=== PATIENT | female | born 1935 | race Caucasian/White ===

== ENCOUNTER 2017-06-21 13:52 | Observation (INO) | payer MEDICARE, OTHER ==
[2017-06-21 14:38] LABS: #Basophils 0.1 thou/uL (0.0-0.2); #Eosinphils 0.3 thou/uL (0.0-0.7); #Lymphocytes 1.9 thou/uL (1.20-3.40); #Monocytes 0.7 thou/uL (0.11-0.59); #Neutrophils 4.8 thou/uL (1.40-6.50); %Eosinophils 3.4 % (0.0-10.0); %Lymphocytes 24.1 % (21.0-51.0); %Monocytes 9.3 % (0.0-10.0); %Neutrophils 62.2 % (42.0-75.0); Mean Corpuscular HGB CONC 34.2 g/dL (32.0-36.0); Mean Corpuscular Hemoglobin 30.7 pg (27.0-31.0); Mean Platelet Volume 6.9 fL (7.4-10.4); Platelet Count 271 thou/uL (130-400); RBC Distribution Width 12.5 % (11.5-14.5); Red Blood Cell (RBC) Count 4.87 mill/uL (4.20-5.40); White Blood Cell (WBC) Count 7.7 thou/uL (4.8-10.8)
[2017-06-21 14:48] LABS: ALT (SGPT) 14 U/L (8-55); AST (SGOT) 18 U/L (5-34); Albumin 4.3 g/dL (3.4-4.8); Alkaline Phosphatase 68 U/L (40-150); Anion Gap 14 mmol/L (10-20); BUN (Urea Nitrogen) 22 mg/dL (9.8-20.1); Bilirubin, Total 0.5 mg/dL (0.2-1.2); Calc. Creatinine Clearance 0 mL/min (70-130); Calcium 9.5 mg/dL (7.8-10.44); Carbon Dioxide 27 mmol/L (23-31); Chloride 104 mmol/L (98-107); Estimated GFR-MDRD 49; Globulin 3.3 g/dL (2.4-3.5); Glucose 151 mg/dL (83-110); Lipase 27 U/L (8-78); Potassium 3.8 mmol/L (3.5-5.1); Protein, Total 7.6 g/dL (6.0-8.3); Sodium 141 mmol/L (136-145)
[2017-06-21 15:01] LABS: CKMB 0.9 ng/mL (0-6.6); Troponin I Less than 0.010 ng/mL (< 0.028)
[2017-06-21] MEDS ORDERED: Nitroglycerin 2% Ointment 1 INCH/1 GM Packet ONE (15:50)
[2017-06-21 15:53] LABS: Bilirubin Negative (Negative); Blood, Urine Negative (Negative); Clarity Clear (Clear); Glucose, Urine (Dipstick) Negative (Negative); Leukocyte Negative (Negative); Nitrite Negative (Negative); Protein, Urine (Dipstick) Negative (Neg-Trace); Urobilinogen 0.2 mg/dL (0.2-1.0)
[2017-06-21 16:01] LABS: Amphetamine Not Detected (NotDetected); Barbiturates Screen Not Detected (NotDetected); Benzodiazepine Screen Not Detected (NotDetected); Cocaine Metabolite Screen Not Detected (NotDetected); Medtox Control Line Valid? VALID (VALID); Methadone Not Detected (NotDetected); Methamphetamine Not Detected (NotDetected); Opiate Screen Not Detected (NotDetected); Oxycodone Screen Not Detected (NotDetected); Phencyclidine (PCP) Not Detected (NotDetected); THC/Cannabinoid Screen Not Detected (NotDetected); Tricyclic Screen Not Detected (NotDetected)
--- NOTE | 2017-06-21 16:50 | CT ---
BRAIN CT WITHOUT IV CONTRAST: History: 82-year-old female with history of confusion, shortness of breath. Comparison: 03-18-12 FINDINGS: There is chronic white matter ischemic changes which has progressed since the prior exam. No focal ma ss or midline shift. No intra or extraaxial hemorrhage. There are some small punctate lacunar infarct s which have developed since the prior study. No mass effect or midline shift. No intra or extraaxial hemorrhage. IMPRESSION: Somewhat progressive atrophy, chronic white matter ischemic changes, and some small lacunar infarct c hanges. No mass or bleed or other acute process. POS: [facility]
--- NOTE | 2017-06-21 16:53 | RAD ---
CHEST PA AND LATERAL: History: 82-year-old female with history of dyspnea and shortness of breath, worsening. Comparison: 08-23-16 FINDINGS: Heart size is upper range of normal. Mild biapical pleural thickening. Stable minimal increased johanna ngs bilaterally. No confluent pneumonia, overt edema, or pleural effusion. IMPRESSION: Stable appearing chest. No acute intrathoracic disease. No evidence for pneumonia or edema. POS: [facility]
[2017-06-21 17:51] LABS: Troponin I Less than 0.010 ng/mL (< 0.028)
[2017-06-21 20:33] LABS: Troponin I Less than 0.010 ng/mL (< 0.028)
[2017-06-21 21:01] VITALS: BMI 19.0
[2017-06-21] MEDS ORDERED: Nitroglycerin 2% Ointment 1 INCH/1 GM Packet TOP SCH (22:00)
[2017-06-22] MEDS ORDERED: Acetaminophen 500 MG TAB PO PRN (08:52)
[2017-06-22] MEDS ORDERED: Acetaminophen 325 MG TAB PO PRN (11:53)
--- NOTE | 2017-06-22 11:56 | ULT ---
BILATERAL CAROTID DUPLEX ULTRASOUND INCLUDING COLOR AND SPECTRAL DOPPLER IMAGING: DATE: 06/22/17 HISTORY: Chest pain. FINDINGS: There is minimal visual plaque in the origins of the right and left ICAs. PSV Right ICA: 57 cm/sec EDV: 16 cm/sec ICA/CCA Ratio: 1.0 PSV Left ICA: 64 cm/sec EDV: 18 cm/sec ICA/CCA Ratio: 1.1 Vertebral flow antegrade. IMPRESSION: No hemodynamically significant stenosis. Minimal visual plaque bilaterally. Evidence for carotid martha ry atherosclerotic vascular disease. POS: [facility]
[2017-06-22] MEDS ORDERED: ALPRAZolam 0.25 MG TAB PO PRN (14:29)
[2017-06-22] MEDS: Ipratropium Bromide 2.5 ml Neb NEB SCH ×3 (15:52→22:14)
--- NOTE | 2017-06-22 16:04 | MRI ---
BRAIN MRI WITHOUT IV CONTRAST: HISTORY: An 82-year-old female with a history of acute confusion, altered mental status, shortness of breath f or several days. FINDINGS: There is atrophy and chronic white matter ischemic change noted bilaterally. Small punctate right ce rebellar lacunar infarct. No evidence for acute infarct. No mass or midline shift. No intra- or ex traaxial hemorrhage. Normal expected flow voids are present. IMPRESSION: Some bilateral atrophy and chronic white matter ischemic changes and old lacunar infarct changes. No mass or bleed. No evidence for acute infarct. POS: [facility]
[2017-06-22] MEDS: Heparin 5,000 UNITS/ML VIAL SC SCH ×4 (16:53→21:13)
--- NOTE | 2017-06-22 17:36 | HP ---
PRIMARY CARE PHYSICIAN: Fred Dumont M.D. HISTORY OF PRESENT ILLNESS: Patient is a very pleasant 82-year-old female with past medical history of emphysema/asthma who presented to the hospital with complaints of generalized weakness and some sh ortness of breath. I did get most of the history from patient's daughter through the phone. The geena banegas's daughter states that for the past week or so, the patient has been complaining of just general ized weakness, not having enough energy. She also has been complaining of some shortness of breath o n exertion. According to the patient's daughter, she was recently diagnosed with mild dementia and w as put on medications. The patient also uses three inhalers at home; however, according to her daugh ter, she has not been using much of the inhalers either. The patient initially was seen at an [facility] facility. Most of her workup has been negative. She did have a brain CT done which showed patient had some white matter ischemic changes and some small lacunar infarct changes. Patient currently de nies any fevers or chills. She does complain of chest tightness; however, her troponins have been ne gative and no significant EKG changes. The patient denies any abdominal pain or diarrhea. Upon aski ng if patient was anxious, she started crying and stated that she is very anxious. The patient's kate ghter also further stated that patient lost her recently. PAST MEDICAL HISTORY: Mild dementia, paroxysmal atrial fibrillation, hypertension, hyperlipidemia, e mphysema/asthma. PAST SURGICAL HISTORY: She had tonsil removed. PSYCHIATRIC HISTORY: She has a history of depression. SOCIAL HISTORY: The patient's daughter stated that she has smoked maybe 3 cigarettes her whole life. No secondhand smoking. Patient normally drinks about 2 beers a week. However, patient's daughter stated that last week when she went to visit her mother, she saw 7 cans of beer in the garbage can. Patient states that when she is unable to sleep. She drinks a can of beer. SOCIAL HISTORY: The patient denies any history of hypertension or diabetes. ALLERGIES: No known drug allergies. MEDICATIONS: She uses ProAir 1 puff as needed, Advair 1 puff daily, Spiriva 1 puff twice a day, simv astatin 10 mg daily, Aricept 10 mg daily, Namenda 10 mg p.o. b.i.d., Lexapro 5 mg at bedtime. REVIEW OF SYSTEMS: The following complete review of systems was negative, unless otherwise mentioned in the HPI or below: Constitutional: Weight loss or gain, ability to conduct usual activities. Skin: Rash, itching. Eyes: Double vision, pain. ENT/Mouth: Nose bleeding, neck stiffness, pain, tenderness. Cardiovascular: Palpitations, dyspnea on exertion, orthopnea. Respiratory: Shortness of breath, wheezing, cough, hemoptysis, fever or night sweats. Gastrointestinal: Poor appetite, abdominal pain, heartburn, nausea, vomiting, constipation, or diarr hea. Genitourinary: Urgency, frequency, dysuria, nocturia. Musculoskeletal: Pain, swelling. Neurologic/Psychiatric: Anxiety, depression. Allergy/Immunologic: Skin rash, bleeding tendency. All negative except for the ones mentioned in the HPI. PHYSICAL EXAMINATION: VITAL SIGNS: Temperature of 97.7, 75, 16, 140/71, and 97% on room air. GENERAL: She is awake, alert, oriented x3. Does not appear in distress. CARDIOVASCULAR: S1, S2 present. No murmurs, rubs or gallops. LUNGS: Completely clear to auscultation. No rhonchi or wheezes noted. ABDOMEN: Soft, nontender. Bowel sounds are present x2. EXTREMITIES: No edema. NEUROLOGIC: A 5/5 upper extremity strength and lower extremity strength. Sensation is intact upper and lower. LABORATORY DATA AND IMAGING DATA: Are as the following; WBCs of 7.7, hemoglobin of 15.0, hematocrit of 43.8, platelets of 271. Urine is normal. No UTI and her sodium of 141, potassium of 3.8, bicarbo selene of 27, BUN of 22, creatinine 1.07. LFTs are normal. Troponins x3 are negative. Thyroid is nor mal at 2.9. As I mentioned, she had a CT of the head which indicated somewhat progressive atrophy wi th small lacunar infarcts and she had a chest x-ray which to me upon my interpretation appears to be hyperinflated however, no evidence of pneumonia noted. ASSESSMENT AND PLAN: The patient is a very pleasant 82-year-old female who presents to the hospital with complaints of generalized weakness and shortness of breath. 1. Shortness of breath could be secondary to anxiety versus asthma/emphysema exacerbation versus inf ectious. Patient's BNP was completely normal at 77.2. She has got no elevated white count. Chest x -ray is completely normal, unlikely to be any infectious process. In regards to emphysema or asthma, we will start her on some DuoNebs and we will continue her home inhalers. She has got no wheezing o n examination. We will hold off on steroids for now. Echo is ordered and is pending. Also, we will check her carotids. Most likely, this patient has been undergoing a lot of stress and has been very depressed recently due to loss of her . This could be related to anxiety; however, I do want to rule out other abnormalities. The patient's troponins x3 were negative. EKG, no ST-T wave penaloza es. We will continue to monitor on telemetry. We will also get an MRI brain for further evaluation. 2. Mild dementia. We will continue her home medications. 3. Emphysema and asthma. We will continue her home medications. 4. Anxiety with depression. We will start patient on p.r.n. Xanax as needed. Since when I started talking with the patient, she started crying and she has been under a lot of stress and has been havi ng a lot of things on her mind. 5. Deep venous thrombosis prophylaxis. We will put patient on subcu heparin.
[2017-06-22] MEDS ORDERED: Escitalopram Oxalate 10 mg Tablet PO SCH (21:00)
[2017-06-22] MEDS ORDERED: Atorvastatin Calcium 10 MG TAB PO SCH (21:00)
[2017-06-22] MEDS ORDERED: Simvastatin 20 MG TAB PO SCH (21:00)
[2017-06-23] MEDS: Ipratropium Bromide 2.5 ml Neb NEB SCH ×3 (02:13→10:17)
[2017-06-23 05:27] LABS: #Eosinphils 0.4 thou/uL (0.0-0.7); #Lymphocytes 1.8 thou/uL (1.20-3.40); #Monocytes 0.7 thou/uL (0.11-0.59); #Neutrophils 2.7 thou/uL (1.40-6.50); %Basophils 0.8 % (0.0-1.0); %Eosinophils 7.6 % (0.0-10.0); %Lymphocytes 31.3 % (21.0-51.0); %Monocytes 12.8 % (0.0-10.0); %Neutrophils 47.5 % (42.0-75.0); Hemoglobin 13.3 g/dL (12.0-16.0); Mean Corpuscular HGB CONC 32.7 g/dL (32.0-36.0); Mean Corpuscular Hemoglobin 30.9 pg (27.0-31.0); Mean Corpuscular Volume 94.6 fl (81.0-99.0); Mean Platelet Volume 6.6 fL (7.4-10.4); Platelet Count 273 thou/uL (130-400); RBC Distribution Width 12.6 % (11.5-14.5); White Blood Cell (WBC) Count 5.7 thou/uL (4.8-10.8)
[2017-06-23 05:44] LABS: Anion Gap 8 mmol/L (10-20); BUN (Urea Nitrogen) 18 mg/dL (9.8-20.1); Calc. Creatinine Clearance 41 mL/min (70-130); Calcium 9.2 mg/dL (7.8-10.44); Carbon Dioxide 29 mmol/L (23-31); Chloride 108 mmol/L (98-107); Estimated GFR-MDRD 62; Glucose 91 mg/dL (83-110); Potassium 4.1 mmol/L (3.5-5.1); Sodium 141 mmol/L (136-145)
[2017-06-23] MEDS ORDERED: Mometasone/Formoterol 120 PUFF INHALER INH SCH (07:00)
[2017-06-23 07:54] VITALS: TEMP 98.2
[2017-06-23] MEDS ORDERED: SALMETEROL INH SCH ×2 (09:00)
[2017-06-23] MEDS ORDERED: Donepezil HCl 10 MG TAB PO SCH (09:00)
[2017-06-23] MEDS ORDERED: FLUTICASONE INH SCH ×2 (09:00)
[2017-06-23] MEDS ORDERED: DILTIAZEM HCL 180 MG PO SCH ×2 (09:00)
[2017-06-23] MEDS: Heparin 5,000 UNITS/ML VIAL SC SCH ×2 (09:26)
--- NOTE | 2017-06-23 13:28 | PDOC.PN ---
- Subjective Encounter Start Date: 06/23/17 Encounter Start Time: 06:45 -: old records requested/rev Patient seen and examined. No new complaints. No overnight events - Objective Resuscitation Status: Resuscitation Status FULL:Full Resuscitation MAR Reviewed: Yes Vital Signs & Weight: Vital Signs (12 hours) Temp Pulse Resp BP Pulse Ox 06/23/17 07:53 98.2 F 114 H 16 157/79 H 95 06/23/17 07:40 98.2 F 114 H 16 06/23/17 07:01 90 14 06/23/17 03:40 97.6 F 76 16 161/93 H 97 06/23/17 02:13 16 Weight Weight 116 lb I&O: 06/22/17 06/23/17 06/24/17 06:59 06:59 06:59 Intake Total 120 1730 300 Balance 120 1730 300 Result Diagrams: 06/23/17 04:57 06/23/17 04:57 Radiology Reviewed by me: Yes EKG Reviewed by me: Yes Phys Exam - Physical Examination Constitutional: NAD HEENT: PERRLA, moist MMs, sclera anicteric Neck: no JVD, supple Respiratory: no wheezing, no rales, no rhonchi Cardiovascular: RRR, no significant murmur, no rub Gastrointestinal: soft, non-tender, no distention, positive bowel sounds Musculoskeletal: no edema, pulses present Neurological: non-focal, normal sensation, moves all 4 limbs Psychiatric: normal affect, A&O x 3 Skin: no rash, normal turgor Dx/Plan (1) COPD exacerbation Code(s): J44.1 - CHRONIC OBSTRUCTIVE PULMONARY DISEASE W (ACUTE) EXACERBATION Status: Acute (2) Dyspnea Code(s): R06.00 - DYSPNEA, UNSPECIFIED Status: Acute (3) Anxiety and depression Code(s): F41.9 - ANXIETY DISORDER, UNSPECIFIED; F32.9 - MAJOR DEPRESSIVE DISORDER, SINGLE EPISODE, UNSPECIFIED Status: Chronic (4) Dementia Code(s): F03.90 - UNSPECIFIED DEMENTIA WITHOUT BEHAVIORAL DISTURBANCE Status: Chronic (5) Dyslipidemia Code(s): E78.5 - HYPERLIPIDEMIA, UNSPECIFIED Status: Chronic (6) Paroxysmal atrial fibrillation Code(s): I48.0 - PAROXYSMAL ATRIAL FIBRILLATION Status: Chronic - Plan cont current plan of care * medication reviewed as below * symptomatic treatment * see discharge summery. Review of Systems - Review of Systems ENT: negative: Ear Pain, Ear Discharge, Nose Pain, Nose Discharge, Nose Congestion, Mouth Pain, Mouth Swelling, Throat Pain, Throat Swelling, Other Respiratory: negative: Cough, Dry, Shortness of Breath, Hemoptysis, SOB with Excertion, Pleuritic Pain, Sputum, Wheezing Cardiovascular: negative: chest pain, palpitations, orthopnea, paroxysmal nocturnal dyspnea, edema, light headedness, other Gastrointestinal: negative: Nausea, Vomiting, Abdominal Pain, Diarrhea, Constipation, Melena, Hematochezia, Other Genitourinary: negative: Dysuria, Frequency, Incontinence, Hematuria, Retention , Other Musculoskeletal: negative: Neck Pain, Shoulder Pain, Arm Pain, Back Pain, Hand Pain, Leg Pain, Foot Pain, Other - Medications/Allergies Allergies/Adverse Reactions: Allergies Allergy/AdvReac Type Severity Reaction Status Date / Time No Known Allergies Allergy Unverified 06/21/17 18:19
[2017-06-23 13:34] VITALS: BP 154/85
--- NOTE | 2017-06-23 13:46 | DIS ---
DATE OF ADMISSION: 06/21/2017 DATE OF DISCHARGE: 06/23/2017 PRIMARY CARE PHYSICIAN: Fred Dumont M.D. DISCHARGE DISPOSITION: Home with home health. PRIMARY DISCHARGE DIAGNOSES: Dyspnea due to mild chronic obstructive pulmonary disease exacerbation, generalized weakness. SECONDARY DISCHARGE DIAGNOSES: Paroxysmal atrial fibrillation, dyslipidemia, dementia, anxiety and d epression, chronic obstructive pulmonary disease. PRIMARY PROCEDURE/OPERATION: None. RADIOLOGICAL INVESTIGATION: Chest x-ray showed COPD changes. CT brain negative for any acute intrac ranial process, but it did show age-related atrophy and cortical white matter ischemic changes and la cunar infarct. MRI brain also concord the CT finding. Carotid Doppler showed atherosclerotic diseas e. SIGNIFICANT LABORATORY DATA: WBC 5.7, hemoglobin 13.3, platelet 273. Sodium 141, creatinine 0.87. Cardiac enzymes negative x3. BNP 77.2. LFT normal. Urinalysis normal. Urine drug screen negative. DISCHARGE MEDICATIONS: ProAir HFA 1 or 2 puffs q.4 hourly p.r.n., aspirin 81 mg p.o. daily, Cardizem -CD 180 mg p.o. daily, Aricept 10 mg p.o. daily, Lexapro 10 mg p.o. at bedtime, Advair inhalation b.i .d., Namenda 10 mg twice daily, Zocor 20 mg p.o. at bedtime, Spiriva 18 mcg inhalation daily. CONTRAINDICATIONS: None. CODE STATUS: FULL CODE. INPATIENT CONSULTANTS: None. ALLERGIES: No known drug allergy. DISCHARGE PLAN: Post hospital, the patient will follow up with primary care physician, Dr. Fred samaniego in 1 week. The patient will follow up with home health nurse. HOSPITAL COURSE: An 82-year-old female who was admitted on hospital on 06/21/2017. The patient was evaluated by admitting physician on 06/22/2017. The patient was discharged home today. Today was my first day of encounter with this particular patient. The patient was admitted for dyspnea and generalized weakness that was attributed to be due to mild c hronic obstructive pulmonary disease flare-up. The patient's respiratory status improved with DuoNeb therapy and home medication. During this admission, we also did MRI brain that was negative for any acute intracranial process, but it did show atrophy and chronic ischemic white matter changes and ol d lacunar infarct. Carotid Doppler showed atherosclerotic disease. Echocardiography was obtained, o fficial report is pending by the time of discharge. The patient did very well while in hospital. We continued all her home medication while in hospital as well as upon discharge. The patient is given home health at home for physical therapy and pen[facility]ent[facility]. Plan of care discussed with the patie nt and family member at bedside. Please see my progress note from today for further detail.
== END 2017-06-23 11:36 | disposition home health service (06) ==
LOC: SCSER 13:52 → 2SE 17:59
PROVIDERS: ADMIT Family Medicine; ATTEND Family Medicine
DX: J43.9 Emphysema, unspecified (principal); R53.1 Weakness; I48.0 Paroxysmal atrial fibrillation; E78.5 Hyperlipidemia, unspecified; F03.90 Unspecified dementia, unspecified severity, without behavioral disturbance, psychotic disturbance, mood disturbance, and anxiety; F41.8 Other specified anxiety disorders; Z79.51 Long term (current) use of inhaled steroids; Z79.899 Other long term (current) drug therapy
CPT/HCPCS: 70450; 70551; 71046; 80048; 80306; 81003; 82553; 82607; 83690; 83880; 84484 ×2; 85025; 93005; 93306; 93880; 94640 ×4; 97116; 97139 ×2; 99285; G0378; G8978; G8979; 36415; 80053; 84443; J1644; J7620; J7644

== ENCOUNTER 2018-12-24 16:01 | Outpatient (CLI) | payer MEDICARE, OTHER ==
--- NOTE | 2018-12-28 14:12 | MMO ---
Bilateral MAMMO Bilat Screen [facility]. CLINICAL HISTORY: Patient is 83 years old and is seen for screening. The patient has no family history of breast cancer. The patient has no personal history of cancer. VIEWS: The views performed were: bilateral craniocaudal with tomosynthesis and bilateral mediolateral oblique with tomosynthesis. FILMS COMPARED: The present examination has been compared to prior imaging studies performed at This study has been interpreted with the assistance of computer-aided detection. MAMMOGRAM FINDINGS: The breasts are extremely dense, which may lower the sensitivity of mammography. Finding 1: There are benign appearing and vascular calcifications seen in both breasts. Finding 2: There are new post operative changes seen in the left breast. Interval placement of loop recorder in the inferior lower left breast. This slightly limits the exam. There are no suspicious masses, suspicious calcifications, or new areas of architectural distortion. IMPRESSION: THERE IS NO MAMMOGRAPHIC EVIDENCE OF MALIGNANCY. A ROUTINE FOLLOW-UP MAMMOGRAM IN 1 YEAR IS RECOMMENDED. THE RESULTS OF THIS EXAM WERE SENT TO THE PATIENT. ACR BI-RADS Category 2 - Benign finding MAMMOGRAPHY NOTE: 1. A negative mammogram report should not delay a biopsy if a dominant of clinically suspicious mass is present. 2. Approximately 10% to 15% of breast cancers are not detected by mammography. 3. Adenosis and dense breasts may obscure an underlying neoplasm. Reported by: KAMAR WHITE MD Electonically Signed: [id number]
== END 2018-12-24 16:02 | disposition home or self-care (01) ==
LOC: BICMAMMO 16:01
PROVIDERS: ATTEND Family Medicine
DX: Z12.31 Encounter for screening mammogram for malignant neoplasm of breast (principal)
CPT/HCPCS: 77063; 77067

== ENCOUNTER 2019-02-18 13:52 | Outpatient (CLI) | payer MEDICARE, OTHER ==
--- NOTE | 2019-02-18 14:56 | BD ---
EXAM: Bone densitometry using DEXA HISTORY: 83 yo female. Screening for postmenopausal osteoporosis. Asymptomatic menopausal state FINDINGS: L1--bone mineral density 0.763 g/sq cm; T score -2.1 ; Z score 0.5 L2--bone mineral density 0.856 g/sq cm; T score -1.6 ; Z score 1.3 L3--bone mineral density 0.947 g/sq cm; T score -1.2 ; Z score 1.7 L4--bone mineral density 0.979 g/sq cm; T score -0.7 ; Z score 2.3 Total L1-L4--bone mineral density 0.889 g/sq cm; T score -1.4 ; Z score 1.4 Left femoral neck--bone mineral density0.506; T score -2.1 ; Z score 0.6 Total proximal left femur--bone mineral density 0.794; T score -1.2 ; Z score 1.1 IMPRESSION: Osteoporosis
== END 2019-02-18 13:53 | disposition home or self-care (01) ==
LOC: BICMAMMO 13:52
PROVIDERS: ATTEND Family Medicine
DX: Z13.820 Encounter for screening for osteoporosis (principal); M81.0 Age-related osteoporosis without current pathological fracture; Z78.0 Asymptomatic menopausal state
CPT/HCPCS: 77080

== ENCOUNTER 2019-08-06 18:21 | Observation (INO) | payer MEDICARE, OTHER ==
[2019-08-06 18:48] LABS: #Eosinphils 0.1 thou/uL (0.0-0.7); #Lymphocytes 1.2 thou/uL (1.20-3.40); #Monocytes 1.4 thou/uL (0.11-0.59); #Neutrophils 9.1 thou/uL (1.40-6.50); %Basophils 0.3 % (0.0-1.0); %Lymphocytes 10.1 % (21.0-51.0); %Monocytes 11.9 % (0.0-10.0); %Neutrophils 76.8 % (42.0-75.0); Hemoglobin 15.3 g/dL (12.0-16.0); Mean Corpuscular HGB CONC 33.2 g/dL (32.0-36.0); Mean Corpuscular Hemoglobin 31.7 pg (27.0-31.0); Mean Corpuscular Volume 95.7 fL (78.0-98.0); Mean Platelet Volume 7.6 fL (7.4-10.4); Platelet Count 256 thou/uL (130-400); RBC Distribution Width 12.3 % (11.5-14.5); Red Blood Cell (RBC) Count 4.81 mill/uL (4.20-5.40); White Blood Cell (WBC) Count 11.8 thou/uL (4.8-10.8)
--- NOTE | 2019-08-06 19:08 | RAD ---
CHEST ONE VIEW: 08/05/19 HISTORY: Atrial fibrillation. COMPARISON: Radiograph 2003. FINDINGS: The lungs are mildly hyperinflated. Pulmonary arteries are mildly distended. Some scar in the right a nd left lung bases. No confluent air space consolidation, pneumothorax or effusion. english as a second language teacher p rojects of the left upper quadrant of the abdomen. Old left sided rib fractures. IMPRESSION: No acute intrathoracic abnormality. POS: HOME
[2019-08-06 19:09] LABS: ALT (SGPT) 9 U/L (8-55); AST (SGOT) 17 U/L (5-34); Albumin 4.2 g/dL (3.4-4.8); Alkaline Phosphatase 77 U/L (40-110); Anion Gap 18 mmol/L (10-20); BUN (Urea Nitrogen) 24 mg/dL (9.8-20.1); Bilirubin, Total 0.3 mg/dL (0.2-1.2); CK (CPK) 39 U/L (29-168); Calc. Creatinine Clearance 0 mL/min (70-130); Calcium 8.8 mg/dL (7.8-10.44); Carbon Dioxide 22 mmol/L (23-31); Chloride 103 mmol/L (98-107); Estimated GFR-MDRD 32; Globulin 3.1 g/dL (2.4-3.5); Glucose 308 mg/dL (83-110); Protein, Total 7.3 g/dL (6.0-8.3); Sodium 140 mmol/L (136-145)
[2019-08-06 19:16] LABS: Potassium 2.9 mmol/L (3.5-5.1)
[2019-08-06] MEDS ORDERED: Aspirin Chewable 81 MG TAB ONE (20:28)
[2019-08-06] MEDS ORDERED: Potassium Chloride 20 MEQ TAB ONE (20:28)
[2019-08-06 21:55] LABS: Troponin I 0.037 ng/mL (< 0.028)
[2019-08-06 22:22] VITALS: BMI 22.4
[2019-08-06] MEDS ORDERED: D5 1/2 NS w/40 mEq KCL 1,000 ML IV SCH ×2 (22:30→23:27)
[2019-08-06] MEDS ORDERED: Acetaminophen 325 MG TAB PO PRN (23:06)
[2019-08-06] MEDS ORDERED: Acetaminophen 650 MG Suppository PR PRN (23:06)
[2019-08-06] MEDS ORDERED: Loratadine 10 MG TAB PO PRN (23:34)
[2019-08-06] MEDS ORDERED: Non-Formulary Item 1 EACH (Albuterol Sulfate [Proair Hfa] 2 PUFF) INH PRN (23:34)
[2019-08-06] MEDS ORDERED: SALMETEROL INH PRN (23:34)
[2019-08-06] MEDS ORDERED: FLUTICASONE INH PRN (23:34)
[2019-08-06] MEDS ORDERED: Donepezil HCl 10 MG TAB PO SCH (23:45)
[2019-08-07 01:15] LABS: Lactic Acid 3.5 mmol/L (0.5-2.2)
--- NOTE | 2019-08-07 01:20 | HP ---
TIME OF ASSESSMENT: 2199. CHIEF COMPLAINT: Shortness of breath. PRIMARY CARE PHYSICIAN: Jason Rojas MD. HISTORY OF PRESENT ILLNESS: Ms. Tillman is an 84-year-old woman who states she does not know all the details to everything that happened today and does have a known history of dementia, but recalls feeling "wiped out" and complains of having shortness of breath. Unclear if this is occurring while at rest or on exertion or both. The patient reports having a history of asthma. The patient states her daughter gave all the details of the physician in the emergency department regarding the events that occurred today. Per ED reports, the patient apparently came in due to chest pressure and dyspnea with generalized weakness and fatigue for the last day. The patient had checked her vital signs at home and noted to be tachycardic. Apparently Dr. Kitchen was contacted and after interrogating the heart monitor she was wearing she was found to have an abnormal reading, therefore, advised to come into the emergency department. The patient states that she feels well at present and denies having any complaints. No chest pain or trouble with her breathing at this present time. Denies having any recent fevers or cough. No nausea or vomiting. No abdominal pain or cramping. Denies having any recent changes with her bowels and denies having any urinary symptoms. Again, no fevers, chills, or sweats. At present, she is asymptomatic. The patient states she lives with her daughter and is mostly independent, requiring a cane to help maintain some stability while walking, but she is able to walk independently. PAST MEDICAL HISTORY: 1. Asthma. 2. Chronic AFib. 3. Hypertension. 4. Hyperlipidemia. 5. Dementia. 6. Depression. PAST SURGICAL HISTORY: Tonsillectomy. SOCIAL HISTORY: The patient lives with her daughter. She uses a cane to help improve her stability while walking. States she does not need it in order to walk. Reports drinking 1-2 beers a week with her daughter. Previously smoked more than 10 years ago. ALLERGIES: NO KNOWN DRUG ALLERGIES. CURRENT MEDICATIONS: 1. Lexapro. 2. Loratadine. 3. Rosuvastatin. 4. Donepezil. 5. ProAir. 6. Diltiazem. 7. Xarelto. 8. Advair. PHYSICAL EXAMINATION: GENERAL: The patient appears thin, well developed, in no acute distress. Resting comfortably in bed. VITAL SIGNS: Temperature 98.4, pulse 88, respirations 20, O2 saturation 96% on room air, blood pressure 140/64. HEENT: Normocephalic and atraumatic. Pupils are equal, round, and reactive to light. Sclerae icterus. Oropharynx is clear. NECK: Supple without lymphadenopathy. LUNGS: Clear to auscultation bilaterally without any wheezes, rales, or rhonchi. CARDIAC: Regular rate and rhythm. No chest wall tenderness. ABDOMEN: Soft, nontender, nondistended. Normoactive bowel sounds present. No guarding or rigidity. No renal angle tenderness. EXTREMITIES: No lower leg swelling or edema. NEUROLOGIC: Alert and oriented. No neuro deficits on exam. SKIN: Warm and dry. LABORATORY DATA: White count 11.8, hemoglobin 15.3, hematocrit 46, platelets 256, neutrophils 76.8. Sodium 140, potassium 2.9, BUN 24, creatinine 1.53, GFR 32, glucose 208, calcium 8.8. CK 39. Troponin initial 0.015, second troponin 0.037. Albumin 4.2. LFTs unremarkable. IMAGING DATA: Chest x-ray, 08/06/2019, showed no acute intrathoracic abnormality. EMERGENCY DEPARTMENT COURSE: In the emergency department, she underwent an EKG showing no acute changes though she was noted to be in sinus tach with a heart rate of 105. She received 324 mg of aspirin p.o., given 500 mL of normal saline, and also received potassium replacement with 40 mEq of K-Dur. IMPRESSION AND PLAN: Ms. Tillman is a very pleasant 84-year-old woman who is a poor historian and reportedly advised to come into the emergency department by Dr. Kitchen after noted to have abnormal ratings on heart monitor. The patient apparently had been complaining of chest pressure, dyspnea, and generalized weakness. She is being admitted for management of the following; 1. Acute coronary syndrome rule out. We will continue to trend troponins and she will remain on continuous cardiac monitoring. We will obtain ratings from the heart monitor she has been wearing. Consultation placed to Dr. Kitchen. She has an initial troponin negative, second troponin indeterminate. We will continue to trend troponins. The patient without any chest pain at present. We will check TSH and lipid panel with morning labs. 2. Hypokalemia. We will continue with potassium replacement. Check additional electrolytes including magnesium. 3. Generalized weakness. The patient reports feeling "wiped out." Denies any fevers or clear signs or symptoms of infection. We will check a UA, urine culture to ensure she does not have an underlying urinary tract infection, though she denies any urinary symptoms. We will add on lactic acid to her labs. 4. Dmecr-ul-xhtxptj kidney injury. The patient with an elevated creatinine of 1.53 and in the past has had normal creatinines. GFR currently is 32 compared to high 40s previously. We will give gentle hydration and continue to monitor renal function. 5. Chronic atrial fibrillation. We will reconcile home medications once verified. 6. Hypertension. We will monitor blood pressure and resume home medications once verified. 7. Asthma. We will resume inhalers which she takes at home. Monitor sats. 8. Deep venous thrombosis prophylaxis. Mechanical SCDs. The patient is also on long-term anticoagulation. 9. Code status. Per the patient, she is a full code and her surrogate decision maker is her daughter. Case discussed with attending who agrees upon care as described above. Job ID: [id number] [facility]
[2019-08-07 01:23] LABS: Troponin I 0.031 ng/mL (< 0.028)
[2019-08-07 04:25] LABS: #Basophils 0.1 thou/uL (0.0-0.2); #Eosinphils 0.2 thou/uL (0.0-0.7); #Lymphocytes 1.6 thou/uL (1.20-3.40); #Monocytes 0.9 thou/uL (0.11-0.59); %Basophils 0.8 % (0.0-1.0); %Eosinophils 2.3 % (0.0-10.0); %Lymphocytes 20.9 % (21.0-51.0); %Monocytes 11.8 % (0.0-10.0); %Neutrophils 64.2 % (42.0-75.0); Hemoglobin 12.1 g/dL (12.0-16.0); Mean Corpuscular HGB CONC 33.9 g/dL (32.0-36.0); Mean Corpuscular Hemoglobin 32.4 pg (27.0-31.0); Mean Corpuscular Volume 95.4 fL (78.0-98.0); Mean Platelet Volume 7.5 fL (7.4-10.4); Platelet Count 203 thou/uL (130-400); RBC Distribution Width 12.4 % (11.5-14.5); Red Blood Cell (RBC) Count 3.74 mill/uL (4.20-5.40); White Blood Cell (WBC) Count 7.7 thou/uL (4.8-10.8)
[2019-08-07 04:40] LABS: Anion Gap 12 mmol/L (10-20); BUN (Urea Nitrogen) 17 mg/dL (9.8-20.1); Calc. Creatinine Clearance 30 mL/min (70-130); Calcium 7.9 mg/dL (7.8-10.44); Carbon Dioxide 25 mmol/L (23-31); Cardiac Risk 2.6 (Less than 4.5); Chloride 109 mmol/L (98-107); Cholesterol 120 mg/dl (< 200 Desired); Estimated GFR-MDRD 44; Glucose 132 mg/dL (83-110); HDL Cholesterol 47 mg/dL (>60 Neg Risk); LDL Cholesterol, Calculated 61 mg/dL; Potassium 3.2 mmol/L (3.5-5.1); Sodium 143 mmol/L (136-145); Triglycerides 61 mg/dL (Less than 150)
[2019-08-07 08:29] LABS: Bacteria/HPF None Seen HPF (None Seen); Bilirubin Negative (Negative); Blood, Urine Negative (Negative); Clarity Clear (Clear); Glucose, Urine (Dipstick) Normal (Negative); Leukocyte 250 Leu/uL (Negative); Nitrite Negative (Negative); Protein, Urine (Dipstick) Negative (Neg-Trace); RBC/HPF 0-3 HPF (0-3); Urobilinogen Normal mg/dL (Less than 2)
[2019-08-07 08:37] LABS: Hemoglobin 12.8 g/dL (12.0-16.0); Platelet Count 227 thou/uL (130-400)
[2019-08-07 08:38] LABS: Urine Culture Reflex No No
[2019-08-07] MEDS ORDERED: Rosuvastatin 10 MG TAB PO SCH (09:00)
[2019-08-07] MEDS ORDERED: Rivaroxaban 10 MG TAB PO SCH (09:00)
[2019-08-07] MEDS ORDERED: Potassium Chloride 20 MEQ TAB PO SCH (09:00)
[2019-08-07] MEDS ORDERED: Escitalopram Oxalate 10 mg Tablet PO SCH (09:00)
[2019-08-07] MEDS ORDERED: Aspirin 81 mg Enteric Coated Tablet PO SCH (09:00)
[2019-08-07] MEDS ORDERED: Albuterol Sulfate 2.5 mg/0.5 ml Neb NEB PRN (10:07)
[2019-08-07] MEDS ORDERED: Potassium Chloride 40 MEQ in Sodium Chloride 0.9% 250 ML 250 ML IVPB SCH (10:15)
[2019-08-07 11:41] VITALS: BP 159/74; TEMP 98.8
--- NOTE | 2019-08-07 13:57 | CON ---
DATE OF CONSULTATION: REASON FOR CONSULTATION: Shortness of breath and tachycardia. HISTORY OF PRESENT ILLNESS: Ms. Tillman is an 84-year-old woman whom I have seen and evaluated in the past. She recently states she was not feeling well. Her daughter states she evaluated her. States she looked pale. No chest pain or pressure per patient or daughter's history. She did have some shortness of breath present. The patient does have a history of atrial flutter in the past. Episodes have been short-lived. She is currently on anticoagulation therapy. PAST MEDICAL HISTORY: Hypertension, hyperlipidemia, TIA, SVT, mild dementia, atrial flutter. MEDICATIONS: Include 1. Claritin. 2. Donepezil. 3. Memantine. 4. Lexapro. 5. Rosuvastatin. 6. Flovent. 7. ProAir. 8. Xarelto. 9. Diltiazem. PAST SURGICAL HISTORY: Tonsillectomy, LINQ placed in 11/2017. SOCIAL HISTORY: No current tobacco or alcohol use. ALLERGIES: NONE. REVIEW OF SYSTEMS: A 10-point review of systems is reviewed as above, otherwise negative. PHYSICAL EXAMINATION: GENERAL: Patient is a pleasant female who is in no acute distress. The patient appears their stated age. VITAL SIGNS: Blood pressure 159/74, pulse 87, temperature 98. NEUROLOGIC: The patient is alert and oriented x3 with no focal neurologic deficits. HEENT: Sclerae without icterus. Mouth has moist mucous membranes with normal pallor. NECK: No JVD. Carotid upstroke brisk. No bruits bilaterally. LUNGS: Clear to auscultation with unlabored respirations. BACK: No scoliosis or kyphosis. CARDIAC: Regular rate and rhythm with normal S1 and S2. No S3 or S4 noted. No significant rubs, murmurs, thrills, or gallops noted throughout the precordium. PMI is not displaced. There is no parasternal heave. ABDOMEN: Soft, nontender, nondistended. No peritoneal signs present. No hepatosplenomegaly. No abnormal striae. EXTREMITIES: 2+ femoral and 2+ dorsalis pedis pulses. No cyanosis, clubbing, or edema. SKIN: No gross abnormalities. PERTINENT LABORATORY DATA: Peak troponin 0.031. IMPRESSION: 1. Tachycardia. 2. Shortness of breath. RECOMMENDATIONS: Ms. Tillman's device will be interrogated. Her EKG appears to be similar to EKG noted in the office. At this point, the patient is currently stable and would like to go home. It would be okay from my standpoint to complete outpatient workup. We will continue Lexx. Her blood count appears stable. Job ID: [id number]
--- NOTE | 2019-08-07 16:39 | DIS ---
DATE OF ADMISSION: 08/06/2019 DATE OF DISCHARGE: 08/07/2019 DISCHARGE MEDICATIONS: 1. Xarelto 20 mg daily. 2. Diltiazem ER 240 mg daily. 3. Claritin 10 mg daily as needed. 4. Crestor 10 mg daily. 5. Albuterol 2 puffs as needed. 6. Aricept 10 mg at bedtime. 7. Namenda 10 mg twice a day. 8. Lexapro 10 mg twice a day. 9. Advair 1 puff as needed. DISCHARGE DIAGNOSES: 1. Transient atrial fibrillation/flutter that has resolved. She is in sinus rhythm today. 2. Hypokalemia. 3. Generalized weakness. 4. Chronic kidney disease, stage 4. 5. Chronic atrial fibrillation. 6. Hypertension. 7. Asthma. CONSULTS: Cardiology with Dr. Kitchen. PHYSICAL EXAMINATION: VITAL SIGNS: Temperature 98.8, pulse 87, blood pressure 159/74, and saturating 94% on room air. GENERAL: The patient is alert and oriented x3. She is a healthy-looking female , not in any acute distress. I talked with the daughter who is taking care of her at home. CARDIOVASCULAR: Regular rate and rhythm without murmurs, rubs, or gallops. LUNGS: Clear to auscultation bilaterally without wheezing, rales, or rhonchi. ABDOMEN: Soft, nontender, and nondistended. Good bowel sounds. EXTREMITIES: Without any pitting edema. NEUROLOGIC: No focal deficits. PERTINENT LABORATORY DATA: Show CBC in the normal range. Her potassium this morning was 3.2, that was repleted. Her creatinine is 1.17, that has improved to 1.03. HOSPITAL COURSE: This is a 84-year-old female with a history of chronic atrial fibrillation, asthma, hypertension, hyperlipidemia, and dementia, presented with being wiped out, not feeling well. The patient does have an implantable event monitor. When the daughter called Dr. Kitchen's office, they did not notice any abnormalities in the event monitor, but asked the patient to go to the ER. She was admitted for generalized weakness as well as abnormal rhythm. However, EKG showed no acute changes and she was in sinus tachycardia with a rate of 105 beats per minute on admission. Next day, Dr. Kitchen visited her and felt that she does not need to stay here further. It appears she converted to sinus rhythm. She is overall doing okay. I had extensive talk with daughter, Ernestine Tillman. Per daughter, the patient has very good exercise tolerance. She is active. At home, she exercises in the sitting bike while watching TV. Does not appear that she needs any physical therapy evaluation for her weakness. The patient will be discharged and followed up with Dr. Montelongo in couple of weeks as needed. DISCHARGE INSTRUCTIONS: Activity as tolerated. Healthy heart diet. Follow up with Dr. Montelongo in 2 weeks. Follow up with primary care physician in 1 week. TIME SPENT: Discharge time took over 30 minutes. Job ID: [id number] MTDD
[2019-08-07] MEDS ORDERED: Mometasone 200 MCG/Formoterol 5 MCG 120 PUFF INHALER INH SCH (18:30)
[2019-08-07] MEDS ORDERED: Donepezil HCl 10 MG TAB PO SCH (21:00)
[2019-08-08] MEDS ORDERED: Rivaroxaban 15 MG TAB PO SCH (17:00)
--- NOTE | 2019-08-10 14:22 | EKG ---
Test Reason : Blood Pressure : / mmHG Vent. Rate : 102 BPM Atrial Rate : 102 BPM P-R Int : 158 ms QRS Dur : 062 ms QT Int : 368 ms P-R-T Axes : 063 -10 060 degrees QTc Int : 479 ms Sinus tachycardia Septal infarct , age undetermined Inferior infarct , age undetermined Abnormal ECG Leftward axis Q wave leads III, aVF Confirmed by MATY HARRIS, YURI Atkins ([id number]), movie editor KYLE CANALES ([id number]) on 08/10/2019 2:22:10 PM Referred By: Confirmed By:YURI RUTLEDGE MD
== END 2019-08-07 15:15 | disposition home or self-care (01) ==
LOC: ERS 18:21 → 2NO 19:47
PROVIDERS: ADMIT Internal Medicine; ATTEND Internal Medicine
DX: I48.20 Chronic atrial fibrillation, unspecified (principal); I48.92 Unspecified atrial flutter; E87.6 Hypokalemia; I12.9 Hypertensive chronic kidney disease with stage 1 through stage 4 chronic kidney disease, or unspecified chronic kidney disease; N18.4 Chronic kidney disease, stage 4 (severe); J45.909 Unspecified asthma, uncomplicated; F03.90 Unspecified dementia, unspecified severity, without behavioral disturbance, psychotic disturbance, mood disturbance, and anxiety; F32.9 Major depressive disorder, single episode, unspecified; Z79.01 Long term (current) use of anticoagulants; Z79.899 Other long term (current) drug therapy
CPT/HCPCS: 71045; 80048; 80053; 80061; 81001; 82550; 82565; 83605; 83735; 83880; 84443; 84484 ×3; 85014; 85018; 85025 ×2; 85049; 93005; 93306; 94760 ×2; 99285; G0378 ×3; 36415; J3480; J7050

== ENCOUNTER 2019-08-23 12:50 | Outpatient (CLI) | payer MEDICARE, OTHER ==
--- NOTE | 2019-08-23 13:37 | RAD ---
EXAM: 4 views of the right elbow HISTORY: Elbow pain after fall COMPARISON: None FINDINGS: No elbow effusion is seen. There is no evidence of acute fracture or dislocation. No signi ficant degenerative changes are seen. No soft tissue swelling is present. IMPRESSION: No evidence of acute osseous abnormality.
--- NOTE | 2019-08-23 13:39 | RAD ---
RIGHT WRIST 2 VIEWS: HISTORY: Swelling and pain. Fall last evening. FINDINGS: Mild degenerative changes of the 1st carpometacarpal. Mild narrowing at the radiocarpal. The carpal s appear intact. Distal radius and ulna appear intact. IMPRESSION: No acute finding. POS: AH
== END 2019-08-23 12:51 | disposition home or self-care (01) ==
LOC: SCSRAD 12:50
PROVIDERS: ATTEND Family Medicine
DX: M25.431 Effusion, right wrist (principal)

== ENCOUNTER 2021-02-06 08:29 | Inpatient (IN) | payer MEDICARE, OTHER ==
[2021-02-06 09:11] LABS: #Lymphocytes 0.7 thou/uL (1.20-3.40); #Monocytes 0.7 thou/uL (0.11-0.59); #Neutrophils 8.5 thou/uL (1.40-6.50); %Eosinophils 0.4 % (0.0-10.0); %Neutrophils 85.6 % (42.0-75.0); Hemoglobin 13.7 g/dL (12.0-16.0); Mean Corpuscular Hemoglobin 30.4 pg (27.0-31.0); Mean Corpuscular Volume 95.2 fL (78.0-98.0); Mean Platelet Volume 7.1 fL (7.4-10.4); Platelet Count 335 thou/uL (130-400); RBC Distribution Width 14.4 % (11.5-14.5); Red Blood Cell (RBC) Count 4.49 mill/uL (4.20-5.40)
[2021-02-06 09:33] LABS: ALT (SGPT) 13 U/L (8-55); AST (SGOT) 32 U/L (5-34); Albumin 3.7 g/dL (3.4-4.8); Alkaline Phosphatase 64 U/L (40-110); Anion Gap 14 mmol/L (10-20); BUN (Urea Nitrogen) 36 mg/dL (9.8-20.1); Bilirubin, Total 0.3 mg/dL (0.2-1.2); Calc. Creatinine Clearance 0 mL/min (70-130); Calcium 9.3 mg/dL (7.8-10.44); Carbon Dioxide 27 mmol/L (23-31); Chloride 105 mmol/L (98-107); Globulin 3.3 g/dL (2.4-3.5); Glucose 164 mg/dL (83-110); Lipase 63 U/L (8-78); Potassium 4.2 mmol/L (3.5-5.1); Sodium 142 mmol/L (136-145)
[2021-02-06] MEDS ORDERED: Morphine 4 MG/ML VIAL ONE (09:45)
[2021-02-06] MEDS ORDERED: Ondansetron PF 4 MG/2 ML Vial IVP PRN (10:35)
[2021-02-06] MEDS ORDERED: Dextrose 50% Abboject 50 ML SYRINGE SLOW IVP PRN (10:35)
[2021-02-06] MEDS ORDERED: hydrALAZINE 20 MG/ML VIAL SLOW IVP PRN (10:35)
[2021-02-06] MEDS ORDERED: Dextrose 5% in Water 1,000 ML IV PRN (10:35)
[2021-02-06] MEDS ORDERED: Acetaminophen/Codeine 30-300mg Tablet PO PRN (10:38)
[2021-02-06] MEDS ORDERED: Cyclobenzaprine 10 MG TAB PO PRN (10:38)
[2021-02-06 12:24] VITALS: BMI 21.0
[2021-02-06] MEDS: Acetaminophen 325 MG TAB PO SCH ×3 (12:32→23:43)
[2021-02-06] MEDS: Ibuprofen 200 MG TAB PO SCH ×2 (12:33→20:27)
[2021-02-06] MEDS ORDERED: Gabapentin 300 MG CAP PO SCH (15:00)
[2021-02-06] MEDS ORDERED: Gabapentin 100 MG CAP PO SCH (16:30)
[2021-02-06] MEDS ORDERED: Sodium Chloride 0.9% 1,000 ML IV SCH (16:30)
[2021-02-06] MEDS ORDERED: methylPREDNISolone 4 mg Tablet PO SCH (17:30)
[2021-02-06] MEDS: Carbidopa/Levodopa 25-100 mg Tablet PO SCH (20:26)
[2021-02-06] MEDS: Donepezil HCl 10 MG TAB PO SCH (20:26)
[2021-02-06] MEDS: Rosuvastatin 10 MG TAB PO SCH (20:26)
[2021-02-06] MEDS: Gabapentin 100 MG CAP PO SCH (20:26)
[2021-02-06] MEDS: Famotidine 20 MG TAB PO SCH (20:26)
[2021-02-06] MEDS ORDERED: Escitalopram Oxalate 10 mg Tablet PO SCH (21:00)
[2021-02-07] MEDS: Acetaminophen 325 MG TAB PO SCH ×4 (05:17→23:41)
[2021-02-07] MEDS: Ibuprofen 200 MG TAB PO SCH ×3 (05:17→20:29)
[2021-02-07 05:58] LABS: #Lymphocytes 0.3 thou/uL (1.20-3.40); #Monocytes 0.4 thou/uL (0.11-0.59); #Neutrophils 7.6 thou/uL (1.40-6.50); %Eosinophils 0.4 % (0.0-10.0); %Lymphocytes 3.8 % (21.0-51.0); %Monocytes 4.8 % (0.0-10.0); Hemoglobin 12.3 g/dL (12.0-16.0); Mean Corpuscular HGB CONC 32.8 g/dL (32.0-36.0); Mean Corpuscular Hemoglobin 31.2 pg (27.0-31.0); Mean Corpuscular Volume 95.4 fL (78.0-98.0); Mean Platelet Volume 7.2 fL (7.4-10.4); Platelet Count 231 thou/uL (130-400); RBC Distribution Width 14.3 % (11.5-14.5); Red Blood Cell (RBC) Count 3.94 mill/uL (4.20-5.40); White Blood Cell (WBC) Count 8.3 thou/uL (4.8-10.8)
[2021-02-07 06:05] LABS: PTT 27.8 sec (22.9-36.1)
[2021-02-07 06:07] LABS: INR-International Normal Ratio 1.1; Prothrombin Time 14.4 sec (12.0-14.7)
[2021-02-07 06:11] LABS: Anion Gap 13 mmol/L (10-20); BUN (Urea Nitrogen) 24 mg/dL (9.8-20.1); Calc. Creatinine Clearance 39 mL/min (70-130); Carbon Dioxide 23 mmol/L (23-31); Chloride 106 mmol/L (98-107); Glucose 177 mg/dL (83-110); Magnesium 2.3 mg/dL (1.6-2.6); Potassium 4.1 mmol/L (3.5-5.1); Sodium 138 mmol/L (136-145)
[2021-02-07 06:12] LABS: Phosphorus 3.2 mg/dL (2.3-4.7)
[2021-02-07] MEDS: Carbidopa/Levodopa 25-100 mg Tablet PO SCH ×3 (08:25→20:30)
[2021-02-07] MEDS: Escitalopram Oxalate 10 mg Tablet PO SCH (08:26)
[2021-02-07] MEDS: Famotidine 20 MG TAB PO SCH ×2 (08:27→20:31)
[2021-02-07] MEDS: Gabapentin 100 MG CAP PO SCH ×3 (08:28→20:32)
[2021-02-07] MEDS ORDERED: FLU VACC QS2021-22(65YR UP)/PF 240 MCG/0.7 ML SYRINGE IM ONE (09:00)
[2021-02-07 14:11] LABS: SARS-CoV-2 PCR by NAA Not Detected (NotDetected)
[2021-02-07] MEDS ORDERED: methylPREDNISolone 4 mg Tablet PO SCH (18:00)
[2021-02-07] MEDS: Donepezil HCl 10 MG TAB PO SCH (20:31)
[2021-02-07] MEDS: Rosuvastatin 10 MG TAB PO SCH (20:33)
[2021-02-08] MEDS: Ibuprofen 200 MG TAB PO SCH (03:14)
[2021-02-08] MEDS: Acetaminophen 325 MG TAB PO SCH ×2 (06:27→13:21)
[2021-02-08] MEDS ORDERED: Ibuprofen 200 MG TAB PO PRN (08:30)
[2021-02-08] MEDS: Carbidopa/Levodopa 25-100 mg Tablet PO SCH ×2 (08:57→16:19)
[2021-02-08] MEDS: Escitalopram Oxalate 10 mg Tablet PO SCH (08:57)
[2021-02-08] MEDS: Gabapentin 100 MG CAP PO SCH ×2 (08:58→16:18)
[2021-02-08] MEDS ORDERED: Famotidine 20 MG TAB PO SCH (09:00)
[2021-02-08 16:54] VITALS: BP 159/70; TEMP 98.1
[2021-02-08] MEDS ORDERED: methylPREDNISolone 4 mg Tablet PO SCH (18:00)
== END 2021-02-08 17:01 | disposition home health service (06) | DRG 199 ==
LOC: ERS 08:29 → SURG B 10:35
PROVIDERS: ADMIT Orthopaedic Surgery; ATTEND Orthopaedic Surgery
DX: S27.0XXA Traumatic pneumothorax, initial encounter (principal); J96.01 Acute respiratory failure with hypoxia; S22.42XA Multiple fractures of ribs, left side, initial encounter for closed fracture; Z20.822 Contact with and (suspected) exposure to COVID-19; F03.90 Unspecified dementia, unspecified severity, without behavioral disturbance, psychotic disturbance, mood disturbance, and anxiety; E78.5 Hyperlipidemia, unspecified; I10 Essential (primary) hypertension; J45.909 Unspecified asthma, uncomplicated; W18.30XA Fall on same level, unspecified, initial encounter; F32.A Depression, unspecified; I48.91 Unspecified atrial fibrillation; Z79.01 Long term (current) use of anticoagulants; Z90.89 Acquired absence of other organs; Z79.899 Other long term (current) drug therapy; Z87.891 Personal history of nicotine dependence
CPT/HCPCS: 36415; 70450; 71045; 71250; 72125; 80048; 80053; 83690; 83735; 84100; 84484; 85025; 85379; 85610; 85730; 90471; 90662; 93005; 93010; 94640; 94760; 96374; G0008; G0390; J0360; J2270; J7050; J7509; J7620; U0003; U0005